=== PATIENT | female | born 1990 | race Caucasian/White ===

== ENCOUNTER 2018-11-15 18:22 | Emergency (ER) | payer OTHER ==
[~2018-11-15] VITALS: Ht 162.6 cm; Wt 47.0 kg
[~2018-11-15 18:22] MED LIST: BCP; LEVO100T PO
[2018-11-15] MEDS ORDERED: SODIUM CHLORIDE FLUSH 10ML SYR IVF ONE (19:00)
[2018-11-15] MEDS ORDERED: KETOROLAC 60 MG/2 ML IV ONE (19:00)
[2018-11-15] MEDS ORDERED: KETOROLAC 30 MG/1 ML ONE (19:04)
--- NOTE | 2018-11-15 19:15 | NUR ---
PT RESTING IN ROOM. NO ACUTE DISTRESS NOTED. VS STABLE. CALL LIGHT IN PLACE. WILL CONTINUE TO MONITOR WHILE PRIMARY RN IS ON BREAK.
[2018-11-15 19:23] LABS: ALBUMIN 3.7 g/dL (3.4-5.0); ANION GAP 6 mmol/L (5-15); BASOPHILS # (AUTO) 0.05 x10^3/uL (0-0.1); BASOPHILS % (AUTO) 1 % (0-1); CALCIUM 8.2 mg/dL (8.5-10.1); CHLORIDE 105 mmol/L (98-107); EOSINOPHILS # (AUTO) 0.18 x10^3/uL (0-0.4); EOSINOPHILS % (AUTO) 3 % (1-7); LYMPHOCYTES # (AUTO) 2.15 x10^3/uL (1-3.4); LYMPHOCYTES % (AUTO) 32 % (22-44); MD NO; MEAN CORPUSCULAR HEMOGLOBIN 31.3 pg (27.0-34.8); MEAN CORPUSCULAR HGB CONC 33.6 g/dL (32.4-35.8); MEAN CORPUSCULAR VOLUME 93.2 fL (80-100); MEAN PLATELET VOLUME 8.9 fL (7.4-10.4); MONOCYTES # (AUTO) 0.47 x10^3/uL (0.2-0.8); MONOCYTES % (AUTO) 7 % (2-9); NEUTROPHILS # (AUTO) 3.85 x10^3/uL (1.8-6.8); NEUTROPHILS % (AUTO) 58 % (42-75); PLATELET COUNT 263 x10^3/uL (130-400); RED BLOOD COUNT 4.43 x10^6/uL (3.82-5.3); RED CELL DISTRIBUTION WIDTH 12.8 % (9.6-15.2)
[2018-11-15 19:28] LABS: ALANINE AMINOTRANSFERASE 29 U/L (12-78); ALKALINE PHOSPHATASE 53 U/L (45-117); BILIRUBIN,TOTAL 0.8 mg/dL (0.2-1.0); CREATININE 0.85 mg/dL (0.55-1.02); TOTAL PROTEIN 7.4 g/dL (6.4-8.2)
[2018-11-15 19:55] LABS: CULTURE INDICATED? YES; MICROSCOPIC INDICATED
--- NOTE | 2018-11-15 20:45 | NUR ---
pts chart up for recheck
[2018-11-15 21:16] VITALS: BP 118/72
== END 2018-11-15 21:18 | disposition home or self-care (01) ==
LOC: ED 19:38
DX: N13.2 Hydronephrosis with renal and ureteral calculous obstruction (principal); E03.9 Hypothyroidism, unspecified
CPT/HCPCS: 36415; 74018; 76770; 80053; 81001; 84703; 85025; 87086; 96374; 99284; J1885